=== PATIENT | male | born 1995 ===

== ENCOUNTER 2021-01-12 12:39 | Emergency (ER) | payer SELFPAY ==
[~2021-01-12] VITALS: Ht 185.4 cm; Wt 84.7 kg
[2021-01-12 12:39] VITALS: BP 123/75
[2021-01-12] MEDS ORDERED: CLONI1TA PO (12:57)
[2021-01-12] MEDS ORDERED: VIST25CA PO (12:57)
[2021-01-12] MEDS ORDERED: CYMB60CA3 PO (12:58)
== END 2021-01-12 14:48 | disposition left against medical advice (07) ==
LOC: M ED 12:39
DX: Z53.21 Procedure and treatment not carried out due to patient leaving prior to being seen by health care provider (principal)